=== PATIENT | male | born 1975 | race Two or more races ===

== ENCOUNTER 2019-10-27 19:18 | Emergency (ER) | payer MEDICAID ==
[~2019-10-27] VITALS: Ht 177.8 cm; Wt 90.7 kg
--- NOTE | 2019-10-27 19:41 | NUR ---
PT AAOX4. AMBULATORY WITH WEAKNESS OF L LEG. PER PATIENTS PT WAS SEEN IN THE BATHROOM PASSES OUT AT 1300 BY HIS PARENTS. UPON ARRIVAL PT WAS AAOX4. VSS. PT WAS ABLE TO THRUG HIS SHOULDERS, RAISE HIS LEGS, AND BOTH ARMS. LEFT ARM DRIFT NOTED AND SOME FACIAL DROOPING ON L SIDE. PLACED ON MONITOR AND PULSE OX.
--- NOTE | 2019-10-27 19:42 | NUR ---
PER REPORT OF FAMILY LAST KNOWN WELL 1400H TODAY.
--- NOTE | 2019-10-27 19:43 | NUR ---
CODE STROKE ACTIVATED
--- NOTE | 2019-10-27 19:45 | NUR ---
IV LINE ESTABLISHED, BLOOD DRAWN AND SENT TO LAB.
--- NOTE | 2019-10-27 19:47 | NUR ---
PT IS WHEELED TO CT SCAN VIA ALS PROTOCOL
--- NOTE | 2019-10-27 19:48 | NUR ---
DR. GÓMEZ ON THE PHONE WITH TELESTROKE (DR. [place])
[2019-10-27 19:52] LABS: BASOPHILS # (AUTO) 0.1 /CMM (0.0-0.2); BASOPHILS % (AUTO) 1.2 % (0.0-2.0); EOSINOPHILS % (AUTO) 0.8 % (0.0-6.0); HEMATOCRIT 50 % (39-51); HEMOGLOBIN 17.1 g/dL (13.5-17.5); LYMPHOCYTES # (AUTO) 2.5 /CMM (0.8-4.8); LYMPHOCYTES % (AUTO) 24.3 % (20.0-44.0); MEAN CORPUSCULAR HGB CONC 34 g/dl (31.0-36.0); MEAN CORPUSCULAR VOLUME 93 fL (80-96); MONOCYTES # (AUTO) 0.8 /CMM (0.1-1.30); MONOCYTES % (AUTO) 7.6 % (2.0-12.0); NEUTROPHILS # (AUTO) 6.7 /CMM (1.8-8.9); NEUTROPHILS % (AUTO) 66.1 % (43.0-81.0); PLATELET COUNT (AUTO) 235 /CMM (150-450); RED BLOOD CELL COUNT(AUTO) 5.38 MIL/uL (4.5-6.0); WHITE BLOOD COUNT (AUTO) 10.2 K/uL (4.3-11.0)
[2019-10-27] MEDS ORDERED: IOHEXOL-350 100 ML VIAL IV ONE (19:58)
[2019-10-27] MEDS ORDERED: IV NS 0.9% 250 ML IV ONE (19:58)
[2019-10-27] MEDS ORDERED: CT SWABBABLE VALVE TRANS SET 1 EA INFUS.SET MC ONE (19:58)
[2019-10-27 20:16] LABS: CARBON DIOXIDE 27 mmol/L (21-32); CHLORIDE 103 mmol/L (98-107); CREATININE 1.3 mg/dL (0.6-1.3); GLUCOSE 101 mg/dL (74-106); POTASSIUM 3.6 mmol/L (3.5-5.1); SODIUM SERUM 141 mmol/L (136-145); UREA NITROGEN, BLOOD 15 mg/dL (7-18)
--- NOTE | 2019-10-27 20:30 | NUR ---
URINE COLLECTED AND SENT TO LAB
--- NOTE | 2019-10-27 20:40 | NUR ---
PT RESTING COMFOTABLY.
[2019-10-27] MEDS ORDERED: ASPIRIN EC 81 MG TABLET.DR PO ONE (21:00)
[2019-10-27] MEDS ORDERED: ASPIRIN 81 MG TAB.CHEW ONE (21:03)
--- NOTE | 2019-10-27 21:16 | NUR ---
PT WAS TOLD HE WOULD BE ADMITTED. PT REFUSED AND STATED HE WOULD RATHER SIGN AMA. AWARE.
[2019-10-27 21:17] LABS: CHOLESTEROL 159 mg/dL (<200); HDL CHOLESTEROL 43 mg/dL (40-60); LDL 79 mg/dL (0-99); TRIGLYCERIDES 191 mg/dL (30-150)
--- NOTE | 2019-10-27 21:17 | NUR ---
IV removed. Catheter intact and site benign. Pressure and 4x4 applied to site. No bleeding noted.
--- NOTE | 2019-10-27 21:18 | NUR ---
PT IN STABLE CONDITION. Patient does not wish to proceed with medical care recommended by . Patient given information related to possible complications, up to and including , which could occur as a result of leaving the hospital at this time. Patient verbalizes understanding of risks involved due to leaving against medical advice. Patient has signed AMA form.
[2019-10-27 21:23] VITALS: BP 115/68
== END 2019-10-27 21:26 | disposition left against medical advice (07) ==
LOC: ER 19:55
DX: R29.810 Facial weakness (principal); F12.10 Cannabis abuse, uncomplicated; F10.10 Alcohol abuse, uncomplicated; F17.200 Nicotine dependence, unspecified, uncomplicated; Y90.0 Blood alcohol level of less than 20 mg/100 ml; Z88.0 Allergy status to penicillin
CPT/HCPCS: 36415; 70450; 70496; 70498; 71045; 80048; 80061; 80305; 80307; 82962; 84484; 85025; 85730; 93005; 99284; J7050; Q9967; G0480